=== PATIENT | female | born 1960 | race Caucasian/White ===

== ENCOUNTER 2021-11-18 16:16 | Emergency (ER) | payer BC, OTHER ==
[2021-11-18 16:24] VITALS: BP 143/78
[2021-11-18] MEDS ORDERED: MECLIZINE 12.5 MG TABLET PO STA (16:59)
[2021-11-18] MEDS ORDERED: ONDANSETRON 4 MG/2 ML VIAL IVP STA (16:59)
[2021-11-18] MEDS ORDERED: SODIUM CHLORIDE 0.9% 1,000 ML IV STA (16:59)
[2021-11-18 17:20] LABS: BASOPHILS % (AUTO) 0.1 %; EOSINOPHILS % (AUTO) 0.1 %; HCT - HEMATOCRIT 40.6 % (37.0-47.0); HGB - HEMOGLOBIN 13.1 g/dL (12.0-16.0); LYMPHOCYTES # (AUTO) 1.3 10^3/uL (1.5-3.5); LYMPHOCYTES % (AUTO) 9.1 %; MEAN CORPUSCULAR HEMOGLOBIN 28.2 pg (27.0-31.0); MEAN CORPUSCULAR HGB CONC 32.3 g/dL (32.0-36.0); MEAN CORPUSCULAR VOLUME 87.5 fL (81.0-99.0); MEAN PLATELET VOLUME 9.9 fL (7.9-10.8); MONOCYTES # (AUTO) 0.7 10^3/uL (0.0-1.0); MONOCYTES % (AUTO) 5.1 %; NEUTROPHILS # (AUTO) 11.9 10^3/uL (1.5-6.6); NEUTROPHILS % (AUTO) 85.1 %; PLT - PLATELET COUNT 345 10^3/uL (130-450); RED BLOOD COUNT 4.64 10^6/uL (4.20-5.40); RED CELL DISTRIBUTION WIDTH 14.2 % (12.0-15.0)
--- NOTE | 2021-11-18 17:27 | ED Physician Documentation ---
History of Present Illness - Stated complaint Stated Complaint: DIZZINESS,VOMIT,DIARRHEA - Chief complaint Chief Complaint: General - History obtained from History obtained from: Patient - History of Present Illness Timing: Today Pain level max: 0 Pain level now: 0 - Additonal information Additional information: Patient is a 61-year-old female who presents to the emergency department complaining of lightheadedness, dizziness today. She had vomiting as well. Most of the vomiting was associated with the dizziness when she moved quickly. She states she has had a recent upper respiratory tract infection, started on amoxicillin recently for sinusitis. She states she is no longer having any sinus pain. No fevers. No chills. She states she has had some diarrhea since starting the amoxicillin. No focal neurological deficits. No arm or leg weakness. No slurred speech. No facial droop. Review of Systems Ten Systems: 10 systems reviewed and negative Constitutional: denies: Fever, Chills Ears: denies: Ear pain Nose: denies: Rhinorrhea / runny nose, Congestion GI: reports: Nausea, Vomiting. denies: Abdominal Pain, Diarrhea Skin: denies: Rash Musculoskeletal: denies: Neck pain, Back pain Neurologic: denies: Headache, Head injury PD PAST MEDICAL HISTORY - Past Medical History Past Medical History: Yes Cardiovascular: Hypertension Endocrine/Autoimmune: Type 2 diabetes - Present Medications Home Medications: Ambulatory Orders Medication Instructions Recorded Confirmed Amox/Clav 875/125 [Augmentin 1 tablet PO Q12H 11/18/21 11/18/21 875/125 Tab] Atorvastatin [Lipitor] 20 mg PO DAILY 11/18/21 11/18/21 Azelastine HCl 1 spray INH BID 11/18/21 11/18/21 Insulin Glargine [Lantus Solostar] 20 units SQ DAILY 11/18/21 11/18/21 Meclizine HCl [Motion Sickness] 25 mg PO Q6H PRN #30 tablet 11/18/21 Montelukast Sodium 10 mg PO DAILY 11/18/21 11/18/21 Ondansetron Odt [Zofran] 4 mg TL Q6H PRN #10 tablet 11/18/21 Semaglutide [Ozempic] 1 mg SQ OAW 11/18/21 11/18/21 Venlafaxine ER [Effexor ER] 150 mg PO DAILY 11/18/21 11/18/21 - Allergies Allergies/Adverse Reactions: Allergies Allergy/AdvReac Type Severity Reaction Status Date / Time No Known Drug Allergies Allergy Verified 11/18/21 16:24 - Living Situation Living Situation: reports: With family Living Arrangement: reports: At home - Social History Does the pt smoke?: No Does the pt have substance abuse?: No - Family History Family history: reports: Non contributory PD ED PE NORMAL - Vitals Vital signs reviewed: Yes - General General: Alert and oriented X 3, No acute distress, Well developed/nourished - HEENT HEENT: PERRL, Moist mucous membranes - Neck Neck: Supple, no meningeal sign - Cardiac Cardiac: RRR, Strong equal pulses - Respiratory Respiratory: No respiratory distress, Clear bilaterally - Abdomen Abdomen: Soft, Non tender, Non distended - Derm Derm: Warm and dry - Extremities Extremities: Other (Mild right horizontal nystagmus. Positive Hallpike to the right.) - Neuro Neuro: Alert and oriented X 3, [facility] 2-12 intact, No motor deficit, No sensory deficit, Normal speech - Psych Psych: Normal mood, Normal affect - Free text exam Free text exam: NIH stroke scale of 0 Results - Vitals Vitals: Vital Signs - 24 hr 11/18/21 16:21 Temperature 35.9 C L Heart Rate 98 Respiratory 16 Rate Blood Pressure 143/78 H O2 Saturation 100 Oxygen O2 Source Room air - Labs Labs: Laboratory Tests 11/18/21 16:30 WBC 14.0 H RBC 4.64 Hgb 13.1 Hct 40.6 MCV 87.5 MCH 28.2 MCHC 32.3 RDW 14.2 Plt Count 345 MPV 9.9 Neut # (Auto) 11.9 H Lymph # (Auto) 1.3 L Bullock # (Auto) 0.7 Eos # (Auto) 0.0 Baso # (Auto) 0.0 Absolute Nucleated RBC 0.00 Nucleated RBC % 0.0 PD MEDICAL DECISION MAKING - ED course Complexity details: reviewed results, re-evaluated patient, considered differential, d/w patient ED course: 61-year-old female with what appears to be vertigo. Feels much better after meclizine and Zofran. Tolerating p.o. without difficulty. Will place on meclizine and Zofran for home. The vertigo is likely viral induced. Patient is very well-appearing, nontoxic. No cerebellar deficits. Patient counseled regarding signs and symptoms for which I believe and urgent re-evaluation would be necessary. Patient with good understanding of and agreement to plan and is comfortable going home at this time This document was made in part using voice recognition software. While efforts are made to proofread this document, sound alike and grammatical errors may occur. Departure - Departure Disposition: 01 Home, Self Care Clinical Impression: Vertigo Condition: Good Instructions: ED Vertigo Unspecified Follow-Up: Marisa Rodriguez MD [Primary Care Provider] - Within 1 week Prescriptions: Meclizine HCl [Motion Sickness] 25 mg PO Q6H PRN #30 tablet PRN Reason: Dizziness Ondansetron Odt [Zofran] 4 mg TL Q6H PRN #10 tablet PRN Reason: Nausea / Vomiting Comments: You can use Zofran and meclizine as needed at home. Drink plenty of fluids and rest. This should improve over the next few days. Return if you worsen. Your prescriptions were sent to [facility] in [place].
[2021-11-18 18:11] LABS: ALBUMIN 4.2 g/dL (3.2-5.5); ALBUMIN/GLOBULIN RATIO 1.1 (1.0-2.2); BILIRUBIN,TOTAL 0.6 mg/dL (0.2-1.0); CALCIUM 9.2 mg/dL (8.5-10.3); CREATININE 0.5 mg/dL (0.4-1.0); POTASSIUM 3.9 mmol/L (3.5-5.0); TOTAL PROTEIN 8.1 g/dL (6.7-8.2)
== END 2021-11-18 18:30 | disposition home or self-care (01) ==
LOC: ED 16:16
DX: R42 Dizziness and giddiness (principal); I10 Essential (primary) hypertension; E11.9 Type 2 diabetes mellitus without complications; Z79.4 Long term (current) use of insulin
CPT/HCPCS: 36415; 80053; 83690; 85025; 96374; 99283; A9270